=== PATIENT | female | born 1960 | race Caucasian/White ===

== ENCOUNTER 2018-05-30 10:07 | Outpatient (CLI) ==
[2014-02-13 10:19] VITALS: BMI 35.4
--- NOTE | 2018-05-30 13:05 | MRI ---
EXAM: MRI right knee without contrast. HISTORY: Internal derangement right knee. 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 Medial and posterio r knee pain. No right knee surgery reported.. TECHNIQUE: Using a local extremity coil on a high field strength magnet multiplanar multisequence MR I was performed of the right knee without intravenous or intra-articular gadolinium contrast. FINDINGS: I do not have prior radiographs of the right knee available for comparison at the time of this dictation. Within the medial compartment tear posterior horn root medial meniscus. Chondrosis with cartilage fi ssuring over the weightbearing medial femoral condyle. Some trace subchondral bone marrow edema over the posterior weightbearing medial tibial plateau. Productive osteophyte formation. Within the lateral compartment the lateral meniscus is intact without discrete surfacing meniscal tea r. The lateral compartment cartilage congruent without underlying subchondral edema. Productive ost eophyte formation. Within the patellofemoral compartment there is marked diffuse patellar chondrosis/chondromalacia virgen lla. Extensive full-thickness cartilage ulceration centered over the median ridge/lateral facet over the more superior pole with underlying subchondral edema/cyst formation. The trochlear groove carti kyler relatively congruent without underlying subchondral edema. Patellofemoral compartment productiv e osteophyte formation. Small/moderate right knee effusion. No large osteochondral loose bodies. Questionable sprain/low gr coral partial tearing distal PCL. No definitive translation of the tibia with respect to the femur. In tact ACL. The extensor mechanism is intact. Anterior superficial soft tissue edema/swelling. The me dial collateral ligament as well as lateral collateral ligament complex and posterolateral corner int act. Trace posterior joint extension/popliteal cyst.. IMPRESSION: Tear posterior horn root medial meniscus. Changes of tricompartmental osteoarthrosis as described. Specifically there is marked diffuse patell ar chondrosis/chondromalacia patella. Small/moderate right knee effusion. Trace posterior joint extension/popliteal cyst. Questionable sprain/low grade partial tearing distal PCL. No definitive translation of the tibia wit h respect to the femur. Intact ACL. Intact collateral ligaments. Recommendation is obtainment and correlation with plain film radiographs of the right knee as none ar e available for comparison at the time of this dictation.
== END 2018-05-30 10:08 | disposition home or self-care (01) ==
LOC: RAD 10:07
PROVIDERS: ATTEND Orthopaedic Surgery
DX: M23.91 Unspecified internal derangement of right knee (principal)

== ENCOUNTER 2018-06-14 08:00 | Outpatient (RCR) ==
[2014-02-13 10:19] VITALS: BMI 35.4
--- NOTE | 2018-06-10 13:13 | RS.OPPTEV2 ---
Date of Note: 06/10/18 Visit #: 1 Date of Evaluation: 06/10/18 Payer Source: Insurance Surgery Performed?: No Treatment Diagnosis: spinal stenosis, lumbar with neurogenic claudication History of Condition/Mechanism of Injury:: pt reports she underwent lumbar fusion per Dr. Mccall in 2017. 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 Prior Level of Function.....Patient was independent with: ADL's, Self Care, Work /Vocation, Caregiving, Ambulation/Mobility, Community Integration/Access Functional Limitations: Sleep, ADL's, Pushing, Pulling, Lifting, Carrying, Sitting, Standing, Bending, Ambulation, Community Access/Integration Current Subjective/complaints:: pt states that her back always hurt. pt states she is on work comp right now for her R knee due to meniscus tear and is preparing to have surgery to repair in a couple of weeks. Treatment Side (optional): N/A *Precautions: limit bending, lifting and twisting/ gentle activity with R knee d /t tear Medical History Medical History: Hypertension, Arthritis Surgical History Comments:: bilateral tennis elbow surgery, bilateral carpal tunnel surgery, bilateral rotator cuff surgery repair, cyst removed from low back, lumbar fusion L4-L5 Smoking Status: Former smoker Hx Home Medications: valsartan-hctz, amlodipine, norco, esomeprazole, meloxicam , premarin, vitamin B12, calcium Patient's Goals: decrease LBP Pain Assessment - Pain Description Pain Location: lumbo/sacral area radiating into R LE Pain Description: Radiating, Chronic Current Pain Intensity: 7/10 Worst Pain Intensity: 10/10 Functional Outcome Measure Oswestry LBP: 32 (64%) - G Codes & Severity Modifier G Codes & Modifier: n/a Source of G Code score: n/a Observation - Observation Posture: Forward Head, Rounded Shoulders, Increased Thoracic Kyphosis, Decreased Lumbar Lordosis Handedness: Right Gait - Gait Pattern General Gait Pattern Observation: No Deviations/Normal General Range of Motion: BUE WFL's. BLE WFL's Muscle Strength: BUE grossly 4+/5. LLE hip flex 4+/5 with pain, knee flex/ext 5 /5, ankle DF/PF 5/5. RLE hip flex 4/5 with pain, knee flex/ext 5/5, ankle DF/ PF 4+/5 - ROM Lumbar Flexion: Hand reach to Mid-Shins Sidebending to Left: Reach to Lateral Joint Line Sidebending to Right: Reach to Lateral Joint Line Lumbar Spine ROM Limitations: Soft Tissue Tightness, Muscle Weakness, Pain Comments: pt with increased pain with all planes of motion, however worst pain with lumbar ext and R side bending - Special Tests SLR Test: Negative Left, Negative Right Seated Dural Stretch Test: Negative Left, Negative Right SI Joint Compression: Positive Palpation Palpation Findings: Tenderness, Trigger Point (trigger points noted R lumbosacral area, L lumbar area) Sensation - Sensation Right Upper Extremity: Intact/Normal Left Upper Extremity: Intact/Normal Right Lower Extremity: Impaired (reports numbness in R great toe with tingling in R thigh) Left Lower Extremity: Intact/Normal Balance - Sitting Balance Static Sitting Balance: Normal Dynamic Sitting Balance: Normal - Standing Balance Static Standing Balance: Good Dynamic Standing Balance: Good - Treatment Modality: Electrical Stim Unattended Parameters/Method Applied: IFC x 20 mins at 12ma Treatment Area: lumbosacral area Patient Position: Right Sidelying - Heat/Cryotherapy Treatment: Hot Pack Comments:: lumbar Interventions - Exercise/Activities/Manual Therapy Exercises/Activities: pt performed gentle knee to chest ex, hamstring stretch Manual Therapy: NA HOME EXERCISE PROGRAM: Hamstring, SKTC, and pirifromis stretch. Pelvic tilt. - Charges Timed Code Treatment Minutes: 41 Total Treatment Time: 62 Procedures billed for this date of service:: eval med, estim unattended, hot pack EVALUATION COMPLEXITY LEVEL EVALUATION COMPLEXITY LEVEL: HISTORY: Medium (HTN, OA, LBP), EXAM OF BODY SYSTEMS: Medium (pain, ROM, muscle tightness, transfers, gait), CLINICAL PRESENTATION: Medium (evolving), CLINICAL DECISION MAKING: Medium Assessment Assessment: pt presents with LBP radiating into R thigh, pt with trigger points present in R lumbosacral area as well as L lumbar near spine. pt pain is limiting activities as well as limiting ability to sleep. Patient Education: Home Exercise Program, Education of Plan of Care Rehab Potential: Good Short Term Goals Goal #1: Patient independent and complaint with basic HEP. 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 Goal to be met by: 07/08/18 Goal #3: Score on Oswestry LBP scale improved <25 Goal to be met by: 07/08/18 Goal #4: pt able to sleep 4 hours without interruption from pain Goal to be met by: 07/08/18 Plan - Treatment to be Provided Procedures: Therapeutic Exercises, Therapeutic Activity, Patient Education Modalities: Electrical Stimulation, Ultrasound/Phonophoresis, Class IV Laser, Cryotherapy, Hot Packs - Treatment Plan Frequency: 2-3x a week Duration: 4 weeks ORDER # VISITS AND/OR THROUGH DATE: 07/08/18 - Treatment Code (1) Low back pain potentially associated with radiculopathy Code(s): M54.5 - LOW BACK PAIN (2) Spinal stenosis, lumbar region with neurogenic claudication Code(s): M48.06 - SPINAL STENOSIS, LUMBAR REGION * DO NOT USE * (3) Muscle tightness Code(s): M62.89 - OTHER SPECIFIED DISORDERS OF MUSCLE
--- NOTE | 2018-06-14 10:09 | RS.OPPTDN ---
Subjective Date of Note: 06/14/18 Visit #: 2 Date of Evaluation: 06/10/18 Payer Source: Insurance Treatment Diagnosis: spinal stenosis, lumbar with neurogenic claudication Current Subjective/complaints:: Patient reports last treatment increased her pain to a high level. She states she feels with Estim (IFC) aggravated her. Following modalities and exercise patient reports lowback is feeling better, but right knee pain is aggravated. States she is scheduled for right knee surgery next week. *Precautions: limit bending, lifting and twisting/ gentle activity with R knee d /t tear Pain Assessment - Pain Description Pain Location: lowback and right knee Current Pain Intensity: lowback mild following treatment Worst Pain Intensity: lowback 7-8/10 this morning Other Comments regarding Pain:: Reports pain pain increased to 10/10 following last session and she was up all night. - Treatment Modality: Electrical Stim Unattended Parameters/Method Applied: [id number] HVGC to 140-150 p.v. with 4 large pads cross current to the lumbar paraspinals with HP prior to EX. Patient Position: Sitting - Heat/Cryotherapy Treatment: Hot Pack (with Estim) Interventions - Exercise/Activities/Manual Therapy Exercises/Activities: Assisted stretching of HS and SKTC. Isometric hip add with ball. Pelvic tilt. Glut sets. Isometric hip flexion, stopped due to increased right knee pain. All isometrics 2s/10reps. Ended with additional gentle stretching. Patient education on body mechanics, safety, home care, and HEP. Total minutes of Exercise: 14mins Manual Therapy: NA HOME EXERCISE PROGRAM: Hamstring, SKTC, and piriformis stretch. Pelvic tilt. Isometric hip adduction. - Charges Timed Code Treatment Minutes: 14mins Total Treatment Time: 40mins Procedures billed for this date of service:: HP, Estim unatttended, EX Assessment: Patient responded well to treatment today with reports of reduction in pain. Patients mobility limited due to right knee pain today. Patient Education: Education of diagnosis, Body/Joint mechanics, Home Exercise Program, Home Safety, Activity Modification Patient demonstrates compliance with HEP?: Yes Short Term Goals Goal #1: Patient independent and complaint with basic HEP. 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
== END 2018-06-14 23:59 ==
PROVIDERS: ATTEND Nurse Practitioner
DX: M48.062 Spinal stenosis, lumbar region with neurogenic claudication (principal); M54.5 Low back pain; M62.89 Other specified disorders of muscle

== ENCOUNTER 2018-07-04 09:00 | Outpatient (RCR) ==
[2014-02-13 10:19] VITALS: BMI 35.4
--- NOTE | 2018-06-16 10:43 | RS.OPPTDN ---
Subjective Date of Note: 06/16/18 Visit #: 3 Date of Evaluation: 06/10/18 Payer Source: Insurance Treatment Diagnosis: spinal stenosis, lumbar with neurogenic claudication Current Subjective/complaints:: Patient says she did not have her pain flare or relieve after her previous session. She says today is a bad day though and R side of her back and R knee is very painful. She says she will be going Wednesday, Jun 22 for a knee scope so she wants to have therapy before that. *Precautions: limit bending, lifting and twisting/ gentle activity with R knee d /t tear Pain Assessment - Pain Description Pain Location: elevated - Treatment Modality: Electrical Stim Unattended Parameters/Method Applied: IFC 4 large pads to the mid to low back in sitting @ 18 ma x 20 mins Patient Position: Sitting - Heat/Cryotherapy Treatment: Hot Pack Interventions - Exercise/Activities/Manual Therapy Exercises/Activities: Very limited and gentle stretches today per request particularly on the R side: SKTC, HS, piriformis, fig 4, x 3. Patient performs pillow squeezes x 10. Total minutes of Exercise: 12 Manual Therapy: NA HOME EXERCISE PROGRAM: Hamstring, SKTC, and piriformis stretch. Pelvic tilt. Isometric hip adduction. - Charges Timed Code Treatment Minutes: 12 Total Treatment Time: 32 Procedures billed for this date of service:: hp, estim (un), ex Assessment: Patient with elevated pain today mostly to her R side of her low back. Patient did not feel much relief today, but she is also concerned with upcoming surgery for her R knee. Limited therex due to this elevation of pain. Patient Education: Education of diagnosis, Body/Joint mechanics, Home Exercise Program, Education of Plan of Care Patient demonstrates compliance with HEP?: Yes Short Term Goals Goal #1: Patient independent and complaint with basic HEP. 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 Patient to have surgery for the R knee Wednesday. Patient to contact us to continue therapy at that time.
--- NOTE | 2018-06-20 14:53 | RS.OPPTDN ---
Subjective Date of Note: 06/20/18 Visit #: 4 Date of Evaluation: 06/10/18 Payer Source: Insurance Treatment Diagnosis: spinal stenosis, lumbar with neurogenic claudication Current Subjective/complaints:: Patient says that she did not get any relief at last appt. She says she is concerned for her upcoming knee scope and will have pre-op performed on Wednesday. She reports back pain that is mostly R sided. *Precautions: limit bending, lifting and twisting/ gentle activity with R knee d /t tear Pain Assessment - Pain Description Pain Location: 8/10 mid to low back - Treatment Modality: Electrical Stim Unattended Parameters/Method Applied: hivolt channel 1 L LB @ 170 pk volts and channel 2 R LB @ 195 pk volts x 20 mins lumbar paraspinals and superior gluts. Patient Position: Sitting - Heat/Cryotherapy Treatment: Hot Pack (with estim) Interventions - Exercise/Activities/Manual Therapy Exercises/Activities: Patient's pain is elevated and concerned over impending knee procedure Wednesday. She returns here in the morning for her next session. She requested no therex and agreed so that we could focus on relieving her pain verifiying if any reduction lasted in comparison to exercise days. Total minutes of Exercise: 0 Manual Therapy: NA HOME EXERCISE PROGRAM: Hamstring, SKTC, and piriformis stretch. Pelvic tilt. Isometric hip adduction. - Charges Timed Code Treatment Minutes: 10 Total Treatment Time: 30 Procedures billed for this date of service:: hp, estim (un) Assessment: Patient presents with elevated back pain with concentration to the R side, rating 8/10. After modalities, pain decreased to 5/10. Ex's with-held to allow for more prolonged relief and as patient will be having surgery Wednesday. Patient Education: Body/Joint mechanics, Home Exercise Program, Education of Plan of Care Patient demonstrates compliance with HEP?: Yes Short Term Goals Goal #1: Patient independent and complaint with basic HEP. 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 Patient will make schedule later.
--- NOTE | 2018-06-21 10:21 | RS.OPPTDN ---
Subjective Date of Note: 06/21/18 Visit #: 5 Date of Evaluation: 06/10/18 Payer Source: Insurance Treatment Diagnosis: spinal stenosis, lumbar with neurogenic claudication Current Subjective/complaints:: Patient says her pain relief lasted her drive home ([place]) and then returned to ~7-8/10. She says last treatment seemed to feel the best. *Precautions: limit bending, lifting and twisting/ gentle activity with R knee d /t tear Pain Assessment - Pain Description Pain Location: moderate pain to the low back, tightness that is more R sided - Treatment Modality: Electrical Stim Unattended Parameters/Method Applied: hivolt channel 1 L lumbar paraspinals @ 155 pk volts and channel 2 for the R @ 175 pk volts x 20 mins Patient Position: Sitting - Heat/Cryotherapy Treatment: Hot Pack Interventions - Exercise/Activities/Manual Therapy Exercises/Activities: REviewed HEP and postural/body mechanics. Patient educated about impending surgery and to ice intermittently. Manual Therapy: NA HOME EXERCISE PROGRAM: Hamstring, SKTC, and piriformis stretch. Pelvic tilt. Isometric hip adduction. - Charges Timed Code Treatment Minutes: 10 Total Treatment Time: 30 Procedures billed for this date of service:: hp, estim (un) Assessment: Patient had relief that lasted ~30 mins yesterday. She continues to have difficulty danny therex currently partly due to R knee pain and impending surgery. Will hold sessions until late next week due to procedure and will finish up and reassess for her low back. Patient Education: Education of diagnosis, Body/Joint mechanics, Home Exercise Program, Education of Plan of Care Patient demonstrates compliance with HEP?: No (stretching is increasing her pain ) Short Term Goals Goal #1: Patient independent and complaint with basic HEP. 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
--- NOTE | 2018-06-30 14:25 | RS.CXNS ---
Date of scheduled appointment: 06/30/18 Type: Cancel Reason for Cancel/NS: Patient had knee surgery last week and was going to the MD today to have stitches removed. Cancelled for this week and resuming next week.
--- NOTE | 2018-07-06 09:00 | RS.OPPTDN ---
Subjective Date of Note: 07/04/18 Visit #: 6 Date of Evaluation: 06/10/18 Payer Source: Insurance Treatment Diagnosis: spinal stenosis, lumbar with neurogenic claudication Current Subjective/complaints:: Patient says she is still having pain from her recent knee scope. She says her entire R side is "no good." She says she has had temporary relief from last treatment using estim. Reports she goes back to Dr. Mccall next week. *Precautions: limit bending, lifting and twisting/ gentle activity with R knee d /t tear - Treatment Modality: Electrical Stim Unattended Parameters/Method Applied: IFC @ 12 ma x 20 mins to the lumbar paraspinals and superior glut region. Patient Position: Left Sidelying - Heat/Cryotherapy Treatment: Hot Pack Interventions - Exercise/Activities/Manual Therapy Exercises/Activities: Patient received gentle Passive stretching to bilateral SKTC, HS, heel cords, piriformis x 2 before patient requests to stop due to increased pain level. Reviewed body mechanics, postural techniques, and HEP. Total minutes of Exercise: 5 Manual Therapy: NA HOME EXERCISE PROGRAM: Hamstring, SKTC, and piriformis stretch. Pelvic tilt. Isometric hip adduction. - Charges Timed Code Treatment Minutes: 5 Total Treatment Time: 30 Procedures billed for this date of service:: hp, estim (un) Assessment: Patient remains with elevated back pain and R knee pain following arthroscopic procedure. Patient is to return to MD next week concerning her back. Will plan to discharge as she is not seeing any improvement at this point. Patient Education: Education of diagnosis, Body/Joint mechanics, Home Exercise Program, Education of Plan of Care Patient demonstrates compliance with HEP?: Yes (as able) Short Term Goals Goal #1: Patient independent and complaint with basic HEP. Goal to be met by: 06/24/18 Progress towards Goal:: Progressing Goal #2: pt with improved hamstring length equal BLE Goal to be met by: 06/24/18 Progress towards Goal:: No Change Goal #3: no reports of radiating pain into RLE Goal to be met by: 06/24/18 Progress towards Goal:: No Change Group Home Goals Goal #1: pt independent with HEP to maintain gains after dc Goal to be met by: 07/08/18 Progress towards goal: Progressing Goal #2: pt report increased ability to perform leg man with less pain Goal to be met by: 07/08/18 Progress towards goal: No Change Goal #3: Score on Oswestry LBP scale improved <25 Goal to be met by: 07/08/18 Progress towards goal: No Change Goal #4: pt able to sleep 4 hours without interruption from pain Goal to be met by: 07/08/18 Plan PLAN OF CARE EXPIRES ON:: 07/08/18 ORDER # VISITS AND/OR THROUGH DATE: 07/08/18 PLAN: Return to MD next week.
--- NOTE | 2018-07-06 09:04 | RS.QUICKDC ---
Discharge from PT Date of Discharge: 07/06/18 Number of Visits: 6 Reason for Discharge: Patient notifies us that she has spoken to her MD and he requests for her to discontinue therapy due to continued pain level. She has received moist heat, estim, and gentle stretching/initiated stability exercises. She has a HEP that she is encouraged to try if able. See daily notes for specific treatment.
== END 2018-07-15 23:59 ==
PROVIDERS: ATTEND Nurse Practitioner
DX: M48.062 Spinal stenosis, lumbar region with neurogenic claudication (principal); M54.5 Low back pain; M62.89 Other specified disorders of muscle

== ENCOUNTER 2018-08-29 13:36 | Outpatient (CLI) ==
[2014-02-13 10:19] VITALS: BMI 35.4
--- NOTE | 2018-08-29 14:19 | US ---
EXAM: Ultrasound venous Doppler right lower extermity HISTORY: Pain and swelling COMPARISON: None TECHNIQUE: Venous duplex ultrasound of the right lower extremity was performed using color, zapien-sca le, and Doppler flow imaging. FINDINGS: There is normal color flow and compression of the right common femoral, greater saphenous, profunda femoral, femoral, popliteal, peroneal, posterior tibial, and anterior tibial veins without evidence of intraluminal thrombus. IMPRESSION: No right lower extremity deep venous thrombosis.
== END 2018-08-29 13:37 | disposition home or self-care (01) ==
LOC: RAD 13:36
PROVIDERS: ATTEND Orthopaedic Surgery
DX: M79.89 Other specified soft tissue disorders (principal)